=== PATIENT | female | born 1990 | race Caucasian/White ===

== ENCOUNTER 2018-07-01 16:57 | Emergency (ER) | payer OTHER ==
[~2018-07-01] VITALS: Ht 165.1 cm; Wt 62.7 kg
[2018-07-01 17:14] VITALS: BP 125/73
--- NOTE | 2018-07-01 17:14 | NUR ---
C/O VAGINAL BLEEDING, LOWER ABDOMINAL PAIN, N/V/D TODAY; LMP FIRST WEEK OF ; G1. PT ADVISED SHE IS GOING THROUGH MEDICALLY INDUCED . LAST DOSE OF MEDICATION AT 1300. VSS; PATIENT POSITIONED FOR COMFORT; HOB ELEVATED; BEDRAILS UP X1; BED DOWN. ER MD MADE AWARE OF PT STATUS.
--- NOTE | 2018-07-01 17:30 | NUR ---
PT AMBULATES TO BED 12
[2018-07-01 18:18] LABS: APPEARANCE,URINE CLEAR (CLEAR); COLOR,URINE YELLOW (YELLOW)
[2018-07-01 18:19] LABS: BILIRUBIN,URINE NEGATIVE (NEGATIVE); BLOOD, URINE 2+ (NEGATIVE); UGLUCOSE NEGATIVE (NEGATIVE)
[2018-07-01 18:21] LABS: LEUKOCYTE ESTERASE ,URINE NEGATIVE (NEGATIVE); NITRITE, URINE NEGATIVE (NEGATIVE)
[2018-07-01 18:32] LABS: RBC,URINE 3-10 (FEW) /HPF (0-5)
--- NOTE | 2018-07-01 18:35 | NUR ---
PT AMBULATED FROM BED TO RESTROOM. APPARENT BLEEDING ON CHUCKS ON BED. INTACT FETUS NOTICED ON CHUCKS. ED MD NOTIFIED.
[2018-07-01 18:48] LABS: ANION GAP 18.2 (8-16); CARBON DIOXIDE 18.5 mmol/L (21-32); CREATININE 0.8 mg/dL (0.6-1.3); POTASSIUM 3.7 mmol/L (3.5-5.1)
--- NOTE | 2018-07-01 19:10 | NUR ---
PATIENT RECEIVED REPORT FROM AMINAH AVENDANO. TRANSFER OF CARE AT THIS TIME.
--- NOTE | 2018-07-01 19:35 | NUR ---
PATIENT RESTING AT THIS TIME. NO SIGNS OF DISTRESS.
[2018-07-01 20:00] LABS: BASOPHILS % (AUTO) 0.1 % (0.0-2.0); HEMATOCRIT 40.1 % (36-48); HEMOGLOBIN 13.5 g/dL (12.0-16.0); LYMPHOCYTES # (AUTO) 0.9 K/uL (2.5-16.5); LYMPHOCYTES % (AUTO) 5.7 % (20.5-51.1); MEAN CORPUSCULAR HEMOGLOBIN 30 pg (27-31); MEAN CORPUSCULAR HGB CONC 34 g/dL (33-37); MEAN CORPUSCULAR VOLUME 87.8 fL (80-94); MONOCYTES # (AUTO) 0.5 K/uL (0.8-1.0); MONOCYTES % (AUTO) 3.5 % (1.7-9.3); NEUTROPHILS # (AUTO) 13.5 K/uL (1.8-7.7); NEUTROPHILS % (AUTO) 90.7 % (42.2-75.2); PLATELET COUNT (AUTO) 326 K/uL (140-450); RED BLOOD CELL COUNT(AUTO) 4.57 MIL/uL (4.20-5.40); RED CELL DISTRIBUTION WIDTH 12.7 % (11.6-13.7); WHITE BLOOD COUNT (AUTO) 14.9 K/uL (4.8-10.8)
[2018-07-01 20:20] VITALS: BP 115/62
--- NOTE | 2018-07-01 20:20 | NUR ---
Patient discharged with v/s stable. Written and verbal after care instructions given and explained. Patient alert, oriented and verbalized understanding of instructions. Ambulatory with steady gait. All questions addressed prior to discharge. ID band removed. Patient advised to follow up with PMD. Rx of MACROBID 100MG, ZOFRAN 4MG AND PERCOCET 5MG-325MG given. Patient educated on indication of medication including possible reaction and side effects. Opportunity to ask questions provided and answered.
== END 2018-07-01 20:20 | disposition home or self-care (01) ==
LOC: MED 16:57
DX: O03.9 Complete or unspecified spontaneous abortion without complication (principal); Z3A.08 8 weeks gestation of pregnancy
CPT/HCPCS: 36415; 76801; 80048; 81001; 81025; 84702; 85025; 86900; 86901; 87086; 99285; Q0092